=== PATIENT | male | born 1950 | race Caucasian/White ===

== ENCOUNTER 2017-01-22 14:38 | Emergency (ER) | payer MEDICARE, BC ==
--- NOTE | 2017-01-22 17:05 | EDM.PDOC ---
[id number] Complaint: SYMPTOMS OF STROKE? Time Seen by Provider: 01/22/17 15:25 Source of Information: Reports: Patient, Family History Limitations: Reports: No Limitations - History of Present Illness INITIAL COMMENTS - FREE TEXT/NARRATIVE: pt felt a little off balance this am. He had one short period where he had some speech difficult. He went to the park and his daughter noted some facial weakness and some speech difficulty. This lasted briefly and then went away He also felt like at one point he had weakness in his rt [facility]. Onset: Today, Other ( He does have a past history of a stroke. ) Duration: Hour(s): Location: Reports: Head, Face Quality: Reports: Other ( slight headache. ) Severity: Mild Associated Symptoms: Reports: No Other Symptoms - Related Data Allergies Allergy/AdvReac Type Severity Reaction Status Date / Time No Known Allergies Allergy Verified 01/22/17 15:47 Home Meds: Home Meds Omeprazole 20 mg PO DAILY 01/22/17 [History] Tamsulosin [Flomax] 0.4 mg PO DAILY 01/22/17 [History] Warfarin [Coumadin] 2.5 mg PO DAILY 01/22/17 [History] Past Medical History Cardiovascular History: Reports: Heart Murmur, Other (See Below) Other Cardiovascular History: heart surgery when young. pulmonic stenosis. Genitourinary History: Reports: Prostate Disorder Neurological History: Reports: TIA, Other (See Below) Other Neuro History: 1999 - Infectious Disease History Infectious Disease History: Reports: Chicken Pox, Measles, Mumps Social & Family History - Tobacco Use Smoking Status *Q: Never Smoker - Caffeine Use Caffeine Use: Reports: Coffee - Recreational Drug Use Recreational Drug Use: No ED ROS GENERAL - Review of Systems Review Of Systems: See Below Constitutional: Reports: No Symptoms HEENT: Reports: No Symptoms Respiratory: Reports: No Symptoms Cardiovascular: Reports: No Symptoms Endocrine: Reports: No Symptoms GI/Abdominal: Reports: No Symptoms : Reports: No Symptoms Musculoskeletal: Reports: No Symptoms Neurological: Reports: Headache, Trouble Speaking ED EXAM, NEURO - Physical Exam Exam: See Below Text/Narrative:: Pt has had 2 episodes of difficulty speaking and some weakness on the rt. He did have a slight facial droop that was brief. Exam Limited By: No Limitations General Appearance: Alert, Anxious Ears: Normal TMs Nose: Normal Inspection Throat/Mouth: Normal Inspection Head Exam: Atraumatic Neck: Normal Inspection Respiratory/Chest: No Respiratory Distress Cardiovascular: Regular Rate, Rhythm GI/Abdominal: Soft, Non-Tender (Male) Exam: Normal Inspection Rectal (Males) Exam: Deferred Neurological: Alert, Oriented x 3, Other (pt had difficulty speaking twice and this was brief. ) Back Exam: Normal Inspection Extremities: Normal Inspection Psychiatric: Normal Affect Course - Vital Signs Last Recorded V/S: Last Vital Signs Temp 36.0 C 01/22/17 15:54 Pulse 82 01/22/17 18:33 Resp 16 01/22/17 15:54 BP 154/89 H 01/22/17 18:33 Pulse Ox 96 01/22/17 18:33 - Orders/Labs/Meds Orders: Active Orders 24 hr Category Date Time Status EKG Documentation Completion [RC] ASDIRECTED Care 01/22/17 15:49 Active Head wo Cont [CT] Stat Exams 01/22/17 16:04 Taken EKG 12 Lead [EK] Routine Ther 01/22/17 15:49 Ordered Labs: Laboratory Tests 01/22/17 01/22/17 01/22/17 Range/Units 15:48 16:00 16:00 WBC 6.9 (4.5-11.0) K/uL RBC 5.19 (4.30-5.90) M/uL Hgb 15.3 H (12.0-15.0) g/dL Hct 45.6 (40.0-54.0) % MCV 88 (80-98) fL MCH 30 (27-31) pg MCHC 34 (32-36) % Plt Count 205 (150-400) K/uL Neut % (Auto) 64 (36-66) % Lymph % (Auto) 22 L (24-44) % [place] % (Auto) 11 H (2-6) % Eos % (Auto) 1 L (2-4) % Baso % (Auto) 2 H (0-1) % PT 24.1 H (9.5-12.0) sec INR 2.18 H (0.80-1.20) Sodium 140 (140-148) mmol/L Potassium 4.1 (3.6-5.2) mmol/L Chloride 105 (100-108) mmol/L Carbon Dioxide 28 (21-32) mmol/L Anion Gap 6.9 (5.0-14.0) mmol/L BUN 22 H (7-18) mg/dL Creatinine 1.4 H (0.8-1.3) mg/dL Est Cr Clr Drug Dosing 62.00 mL/min Estimated GFR (MDRD) 50 L (>60) Glucose 110 H (74-106) mg/dL Calcium 8.8 (8.5-10.1) mg/dL Total Bilirubin 0.5 (0.2-1.0) mg/dL AST 24 (15-37) U/L ALT 30 (12-78) U/L Alkaline Phosphatase 68 (46-116) U/L Total Protein 7.4 (6.4-8.2) g/dL Albumin 3.8 (3.4-5.0) g/dL Globulin 3.6 H (2.3-3.5) g/dL Albumin/Globulin Ratio 1.1 L (1.2-2.2) Urine Color Urine Appearance Urine pH (4.5-8.0) Ur Specific [place] (1.008-1.030) Urine Protein (NEGATIVE) mg/dL Urine Glucose (UA) (NEGATIVE) mg/dL Urine Ketones (NEGATIVE) mg/dL Urine Occult Blood (NEGATIVE) Urine Nitrite (NEGAITVE) Urine Bilirubin (NEGATIVE) Urine Urobilinogen (NORMAL) mg/dL Ur Leukocyte Esterase (NEGATIVE) Urine RBC (0-5) Urine WBC (0-5) Ur Epithelial Cells Amorphous Sediment Urine Bacteria Urine Mucus 01/22/17 Range/Units 16:42 WBC (4.5-11.0) K/uL RBC (4.30-5.90) M/uL Hgb (12.0-15.0) g/dL Hct (40.0-54.0) % MCV (80-98) fL MCH (27-31) pg MCHC (32-36) % Plt Count (150-400) K/uL Neut % (Auto) (36-66) % Lymph % (Auto) (24-44) % [place] % (Auto) (2-6) % Eos % (Auto) (2-4) % Baso % (Auto) (0-1) % PT (9.5-12.0) sec INR (0.80-1.20) Sodium (140-148) mmol/L Potassium (3.6-5.2) mmol/L Chloride (100-108) mmol/L Carbon Dioxide (21-32) mmol/L Anion Gap (5.0-14.0) mmol/L BUN (7-18) mg/dL Creatinine (0.8-1.3) mg/dL Est Cr Clr Drug Dosing mL/min Estimated GFR (MDRD) (>60) Glucose (74-106) mg/dL Calcium (8.5-10.1) mg/dL Total Bilirubin (0.2-1.0) mg/dL AST (15-37) U/L ALT (12-78) U/L Alkaline Phosphatase (46-116) U/L Total Protein (6.4-8.2) g/dL Albumin (3.4-5.0) g/dL Globulin (2.3-3.5) g/dL Albumin/Globulin Ratio (1.2-2.2) Urine Color Yellow Urine Appearance Clear Urine pH 6.0 (4.5-8.0) Ur Specific [place] 1.010 (1.008-1.030) Urine Protein Negative (NEGATIVE) mg/dL Urine Glucose (UA) Normal (NEGATIVE) mg/dL Urine Ketones Negative (NEGATIVE) mg/dL Urine Occult Blood Negative (NEGATIVE) Urine Nitrite Negative (NEGAITVE) Urine Bilirubin Negative (NEGATIVE) Urine Urobilinogen Normal (NORMAL) mg/dL Ur Leukocyte Esterase Negative (NEGATIVE) Urine RBC 0-5 (0-5) Urine WBC 0-5 (0-5) Ur Epithelial Cells Rare Amorphous Sediment Few Urine Bacteria Not seen Urine Mucus Few - Re-Assessments/Exams Free Text/Narrative Re-Assessment/Exam: 01/23/17 15:33 pt was found to have a normal cat scan and normal lab. He had no further symptoms. A long discussion was held with the pt regarding being tramsfered to [place] for further workup. He choose to go to [facility] where all of his records were. He has had a previous stroke. All of his symptoms have presently cleared. His partner plans to drive him to the ER at [facility] Departure - Departure Time of Disposition: 18:40 Disposition: DC/Tfer to Acute Hospital 02 Condition: Fair Clinical Impression: TIA (transient ischemic attack) - Discharge Information Referrals: PCP,None [Primary Care Provider] - Forms: ED Department Discharge Care Plan Goals: copy all records, copy the cat scan and put on disc. Pt has chosen to go to [facility] for further evaluation and possiboly a MRA Pt felt stable when he left. He did understand that things could change and he may need to seek further help on the way. - My Orders Last 24 Hours: My Active Orders 01/22/17 15:49 EKG Documentation Completion [RC] ASDIRECTED EKG 12 Lead [EK] Routine 01/22/17 16:04 Head wo Cont [CT] Stat - Assessment/Plan Last 24 Hours: My Active Orders 01/22/17 15:49 EKG Documentation Completion [RC] ASDIRECTED EKG 12 Lead [EK] Routine 01/22/17 16:04 Head wo Cont [CT] Stat
[2017-01-22 18:33] VITALS: BP 154/89
== END 2017-01-22 18:50 ==
LOC: JP.ED 14:38
DX: G45.9 Transient cerebral ischemic attack, unspecified (principal); Z79.899 Other long term (current) drug therapy; Z98.890 Other specified postprocedural states
CPT/HCPCS: 36415; 70450; 80053; 81001; 85025; 85610; 93005; 93010; 99285; 99285-25